=== PATIENT | male | born 1960 | race Two or more races ===

== ENCOUNTER 2021-03-21 18:00 | Inpatient (IN) | payer MEDICAID, OTHER ==
[~2021-03-21] VITALS: Ht 180.3 cm; Wt 92.1 kg
[2021-03-21] MEDS ORDERED: ASPIRIN 325MG TABLET PO ONE (19:15)
[2021-03-21 19:31] LABS: BASOPHILS % 1.2 % (0.0-2.0); EOSINOPHILS % 3.4 % (0.0-5.0); HEMATOCRIT. 41.6 % (42.0-52.0); HEMOGLOBIN. 14.8 g/dL (14.0-18.0); LYMPHOCYTES % 37.7 % (20.0-50.0); MEAN CORPUSCULAR HEMOGLOBIN 32.5 pg (28.0-32.0); MEAN CORPUSCULAR VOLUME 91.1 fL (80.0-94.0); MEAN PLATELET VOLUME 8.6 fl (7.4-10.4); MONOCYTES % 10.4 % (2.0-8.0); NEUTROPHILS % 47.3 % (40.0-76.0); PLATELET 219 x1000/uL (130-400); RED BLOOD CELL COUNT 4.57 mill/uL (4.7-6.1); RED CELL DISTRIBUTION WIDTH 13.3 % (11.6-14.6)
[2021-03-21 19:33] LABS: CHLORIDE 109 mEq/L (98-107)
[2021-03-22] VITALS (11 sets, daily range): BP systolic 131–147; BP diastolic 70–97
[2021-03-22] MEDS ORDERED: HYDROCODONE/ACETAMINOPHEN 5/325MG TABLET PO PRN (03:00)
[2021-03-22] MEDS ORDERED: ACETAMINOPHEN 325MG TABLET PO PRN (03:00)
[2021-03-22] MEDS ORDERED: NALOXONE HCL 0.4MG/ML VIAL IV PRN (03:15)
[2021-03-22] MEDS ORDERED: ASPI-1497 PO (05:52)
[2021-03-22] MEDS ORDERED: METO25TA6 PO (05:52)
[2021-03-22] MEDS ORDERED: FUROSEMIDE 40MG/4ML VIAL IVP NR (08:15)
[2021-03-22] MEDS: METOPROLOL TARTRATE 25MG TABLET PO SCH ×2 (08:40→20:54)
[2021-03-22] MEDS: ENOXAPARIN 100MG/ML SYR SUBCUT SCH ×2 (08:41→20:54)
[2021-03-22] MEDS: ASPIRIN 81MG TABLET PO SCH (08:41)
[2021-03-22] MEDS ORDERED: ENOXAPARIN 40MG/0.4ML SYR SUBCUT SCH (09:00)
[2021-03-22 10:45] LABS: BASOPHILS % 0.9 % (0.0-2.0); EOSINOPHILS % 3.4 % (0.0-5.0); HEMATOCRIT. 47.7 % (42.0-52.0); HEMOGLOBIN. 16.3 g/dL (14.0-18.0); LYMPHOCYTES % 28.6 % (20.0-50.0); MEAN CORPUSCULAR HEMOGLOBIN 31.2 pg (28.0-32.0); MEAN CORPUSCULAR VOLUME 91.6 fL (80.0-94.0); MEAN PLATELET VOLUME 8.5 fl (7.4-10.4); NEUTROPHILS % 59.1 % (40.0-76.0); PLATELET 214 x1000/uL (130-400); RED BLOOD CELL COUNT 5.21 mill/uL (4.7-6.1); RED CELL DISTRIBUTION WIDTH 13.4 % (11.6-14.6)
[2021-03-22 12:11] LABS: CHLORIDE 106 mEq/L (98-107)
[2021-03-22 12:23] LABS: *AMPHETAMINES SCREEN URINE NEGATIVE (NEGATIVE); *BARBITURATES SCREEN URINE NEGATIVE (NEGATIVE); *BENZODIAZEPINES SCREEN URINE NEGATIVE (NEGATIVE)
[2021-03-22 12:24] LABS: *COCAINE SCREEN URINE NEGATIVE (NEGATIVE); CANNABINOID URINE SCREEN PRESUMTIVE POSITIVE (NEGATIVE); METHADONE URINE SCREEN NEGATIVE (NEGATIVE); OPIATES URINE SCREEN NEGATIVE (NEGATIVE); PHENCYCLIDINE URINE SCREEN NEGATIVE (NEGATIVE)
[2021-03-23] VITALS (11 sets, daily range): BP systolic 107–147; BP diastolic 60–80
[2021-03-23 07:17] LABS: INR 1.1; PROTHROMBIN TIME 11.9 sec (9.6-11.0)
[2021-03-23] MEDS: ASPIRIN 81MG TABLET PO SCH (09:00)
[2021-03-23] MEDS: METOPROLOL TARTRATE 25MG TABLET PO SCH ×2 (09:00→20:57)
[2021-03-23] MEDS: ENOXAPARIN 100MG/ML SYR SUBCUT SCH (09:48)
[2021-03-23] MEDS ORDERED: MIDAZOLAM HCL 2 MG/2 ML VIAL ONE (10:50)
[2021-03-23] MEDS ORDERED: FENTANYL CITRATE/PF 50MCG/ML 2ML VIAL ONE (10:51)
[2021-03-23] MEDS ORDERED: LIDOCAINE HCL 2% JELLY 5ML ONE (10:52)
[2021-03-23] MEDS ORDERED: TETRACAINE/BENZOCAINE/BUTAMBEN 20 GM SPRAY MM ONE (10:52)
[2021-03-23] MEDS ORDERED: ADENOSINE 3 MG/ML 2ML VIAL IV ONE ×2 (11:11→11:13)
[2021-03-23] MEDS ORDERED: LIDOCAINE HCL 2% 5ML SYRINGE IV ONE (11:16)
[2021-03-23] MEDS: APIXABAN 5 MG TABLET PO SCH (18:13)
[2021-03-24] VITALS (9 sets, daily range): BP systolic 94–142; BP diastolic 62–83
[2021-03-24] MEDS: METOPROLOL TARTRATE 25MG TABLET PO SCH (08:47)
[2021-03-24] MEDS: ASPIRIN 81MG TABLET PO SCH (08:50)
[2021-03-24] MEDS: APIXABAN 5 MG TABLET PO SCH (08:51)
[2021-03-24] MEDS ORDERED: SPIRONOLACTONE 25MG TABLET PO SCH (09:00)
[2021-03-24] MEDS ORDERED: METO25TA6 PO (12:10)
[2021-03-24] MEDS ORDERED: APIX5TAB PO (12:10)
[2021-03-25] MEDS ORDERED: FUROSEMIDE 20MG TABLET PO SCH (09:00)
== END 2021-03-24 15:00 | disposition home or self-care (01) | DRG 194 ==
LOC: ER 18:00 → 3WST 23:46 → ENRESERV 03-22 00:08
PROVIDERS: ADMIT Internal Medicine; ATTEND Internal Medicine
PROC: 5A2204Z Restoration of Cardiac Rhythm, Single (ICD-10-PCS; principal; 2021-03-23)
DX: I11.0 Hypertensive heart disease with heart failure (principal); E87.8 Other disorders of electrolyte and fluid balance, not elsewhere classified; I48.92 Unspecified atrial flutter; I50.33 Acute on chronic diastolic (congestive) heart failure; I16.0 Hypertensive urgency; F10.10 Alcohol abuse, uncomplicated; Z20.822 Contact with and (suspected) exposure to COVID-19; F12.90 Cannabis use, unspecified, uncomplicated; I45.10 Unspecified right bundle-branch block; Y90.9 Presence of alcohol in blood, level not specified; Z87.891 Personal history of nicotine dependence; Z79.82 Long term (current) use of aspirin; Z79.899 Other long term (current) drug therapy; Z71.41 Alcohol abuse counseling and surveillance of alcoholic; R07.9 Chest pain, unspecified
CPT/HCPCS: 36415; 71045; 80048; 80053; 80305; 80320; 83036; 83880; 84443; 84484; 85025; 87426; 92960; 93005; 93306; 99285; J0153; J1650; J1940; J2250; J3010; J3490; G0480